=== PATIENT | female | born 1940 ===

== ENCOUNTER 2017-06-23 09:22 | Day surgery (SDC) | payer MEDICARE, OTHER ==
[2017-06-18 08:56] VITALS: BMI 32.3
[2017-06-23] MEDS ORDERED: Tropicamide 1% Opht 150 DROP/15 ML LEFTEYE ONE (09:45)
[2017-06-23] MEDS: Phenylephrine 2.5% Opht Soln OS ONE ×2 (09:45→11:34)
[2017-06-23] MEDS ORDERED: Flurbiprofen 0.3% Opht SOLN OU ONE (09:45)
[2017-06-23] MEDS ORDERED: Tropicamide 1% Opht 150 DROP/15 ML LEFTEYE SCH (10:15)
[2017-06-23] MEDS ORDERED: Flurbiprofen 0.3% Opht SOLN OS SCH (10:15)
[2017-06-23] MEDS ORDERED: PHENYLEPHRINE HCL 2.5% OS SCH (10:15)
[2017-06-23] MEDS ORDERED: Acetylcholine 1% Opth System Pack IO ONE (11:04)
[2017-06-23] MEDS ORDERED: Maxitrol Opht Susp ONE (11:04)
[2017-06-23] MEDS ORDERED: Lidocaine 1% 20 MG/2 ML PF AMP ONE (11:05)
[2017-06-23] MEDS ORDERED: CA CL/K CL/NA CL 500 ML IR ONE (11:05)
[2017-06-23] MEDS ORDERED: Tetracaine 0.5% Ophth 2 ML BOTTLE ONE (11:05)
[2017-06-23] MEDS ORDERED: BSS 15 ML 45 ML IR ONE (11:05)
[2017-06-23] MEDS ORDERED: Chondroitin/Hyaluronate Opth Syringe KIT (0.55 ml-0.5 ml) IO ONE (11:06)
[2017-06-23] MEDS ORDERED: Povidone Iodine 5% Opht SOLUTION ONE (11:06)
[2017-06-23] MEDS ORDERED: Midazolam 2 MG/2 ML VIAL ONE (11:11)
[2017-06-23] MEDS: EPINEPHrine 1 mg/ml (1:1000) Inj ONE ×2 (11:13→11:20)
[2017-06-23] MEDS ORDERED: Tetracaine 0.5% Ophth 2 ML BOTTLE OS ONE (11:15)
[2017-06-23] MEDS ORDERED: Lactated Ringer's 1,000 ML IV ONE (11:20)
[2017-06-23] MEDS ORDERED: Maxitrol Opht Susp OS ONE (11:34)
[2017-06-23 12:48] VITALS: RESP 18
--- NOTE | 2017-06-23 13:21 | PCM.RRTMUL ---
COMPUTING SERVICES DIRECTOR Nurse Assessment - Situation COMPUTING SERVICES DIRECTOR Responder Arrival Time:: 12:18 - Vital Signs Blood Pressure:: 192/91 Pulse Rate:: 59 Respiratory Rate:: 18 Temperature:: 98.2 F I.Reason for COMPUTING SERVICES DIRECTOR - A) Acute Change in Patient: Subjective: S: Pt is a 77 yo F s/p left cataract surgery, no history of hypertension, BP before surgery not elevated. COMPUTING SERVICES DIRECTOR called due to elevated BP. On arrival BP 206/89, HR 59, O2 sat 98. Patient did not appear to be in acute distress. O: On exam, lungs were clear to auscultation bilaterally, S1,S2, patient remained AAOx3 and not in distress. EKG was done, was unremarkable, and showed no changes from prior studies. Hydralazine 10mg IV push was given, BP came down to 179/77. HR was 58, O2 sat 98. A: This is a 77 yo F s/p left cataract surgery with no history of htn, who had elevated BP post surgery. Pt remained comfortable during COMPUTING SERVICES DIRECTOR and interventions, and BP came down to 179/77 with intervention hydralazine 10mg. P: Elevated blood pressure,acute, likely secondary to stress of surgical procedure -monitor vital signs, repeat BP in 30 min. Repeat BP in 30 min was 162/51, HR 71 , O2 sat 100. -f/u with PMD within 1 week
[2017-06-23 14:08] VITALS: O2SAT 100
[2017-06-23 14:09] VITALS: BP 131/65; PULSE 57; TEMP 97.8
--- NOTE | 2017-06-24 18:02 | CARD ---
APPROVED REPORT EKG Measurement Heart [id number] <Conclusion> Sinus bradycardia Nonspecific T wave abnormality Abnormal ECG
--- NOTE | 2017-06-29 11:13 | OP ---
SURGEON: FADY KEBEDE MD ANESTHESIOLOGIST: AILYN CLEARY MD ANESTHESIA: LOCAL / IV SEDATION PREOPERATIVE DIAGNOSIS: CATARACT LEFT EYE. POSTOPERATIVE DIAGNOSIS: CATARACT LEFT EYE. OPERATION: CLEAR CORNEAL PHACOEMULSIFICATION WITH LENS IMPLANT LEFT EYE. PREPARATION AND PROCEDURE: After the patient was prepped and draped in the usual manner for sterile ophthalmic surgery, local IV sedation was administered ; eye seals were applied to the upper and lower lid margins and an adult wire lid speculum was placed within the lids. Under microsurgical control, a two- step clear corneal incision was made into the anterior chamber. The initial incision was perpendicular to the corneal plane. The second incision with the keratome was placed at a 45-degree angle to the first incision. One cc of one percent Xylocaine MPF was instilled into the anterior chamber to achieve proper intraocular anesthesia. At this time, the Viscoelastic was injected into the anterior chamber for protection of the endothelium and for maintenance of the chamber depth. A 360-degree continuous curvilinear capsulorrhexis was performed using a pre-bent 25-gauge needle. Hydrodissection and hydrodelineation were performed using a Caldwell cannula and balanced salt solution. Utilizing the tip of the Caldwell cannula, the nucleus was rotated freely within the capsular bag. A standard one-handed phacoemulsification was utilized at this time for sculpting and rotating of the nucleus. The nucleus was fragmented in its entirety and aspirated without any consequence. A standard I&A was carried out for the residual cortical material. No residual material was noted within the capsular bag. The posterior capsule was noted to be clear. Additional Viscoelastic was injected into the capsular bag in preparation for lens implantation. After this has been satisfactorily achieved the intraocular lens injected through the corneal incision into the capsular bag. The intraocular lens was manipulated until it was properly oriented and the Viscoelastic was evacuated from the capsular bag and anterior chamber. The anterior chamber was reformed with balanced salt solution. The corneal incision was irrigated with BSS. The intraocular pressure was found to be within normal limits. This terminated the procedure. The speculum and lid drapes were removed. TobraDex ophthalmic suspension and Pilocarpine 1% drops one drop was applied to the eye. POSTOPERATIVE CONDITION: The patient was brought to the Postanesthesia Recovery area with stable vital signs. DFADY ORR MDD
== END 2017-06-23 14:25 | disposition home or self-care (01) ==
LOC: H.OPSURG 09:22
PROVIDERS: ATTEND Ophthalmology
DX: H26.9 Unspecified cataract (principal); R03.0 Elevated blood-pressure reading, without diagnosis of hypertension
CPT/HCPCS: 66984; 93005; J0171; J2250; J3010; J7120; V2632

== ENCOUNTER 2017-07-07 08:40 | Day surgery (SDC) | payer MEDICARE, OTHER ==
[2017-06-18 08:56] VITALS: BMI 32.3
[2017-07-07] MEDS ORDERED: Lidocaine 1% 20 MG/2 ML PF AMP ONE (08:43)
[2017-07-07] MEDS ORDERED: EPINEPHrine 1 mg/ml (1:1000) Inj ONE (08:43)
[2017-07-07] MEDS ORDERED: Tetracaine 0.5% Ophth 2 ML BOTTLE ONE (08:43)
[2017-07-07] MEDS ORDERED: Maxitrol Opht Susp ONE (08:43)
[2017-07-07] MEDS ORDERED: Acetylcholine 1% Opth System Pack IO ONE ×2 (08:43→12:20)
[2017-07-07] MEDS ORDERED: BSS 15 ML 45 ML IR ONE (08:44)
[2017-07-07] MEDS ORDERED: Chondroitin/Hyaluronate Opth Syringe KIT (0.55 ml-0.5 ml) IO ONE ×2 (08:44→12:16)
[2017-07-07] MEDS ORDERED: Povidone Iodine 5% Opht SOLUTION ONE (08:44)
[2017-07-07] MEDS ORDERED: CA CL/K CL/NA CL 500 ML IR ONE (08:44)
[2017-07-07] MEDS ORDERED: Pilocarpine 1% Opht Soln ONE (08:44)
[2017-07-07 09:24] VITALS: RESP 18
[2017-07-07] MEDS ORDERED: Flurbiprofen 0.3% Opht SOLN OU ONE (09:45)
[2017-07-07] MEDS ORDERED: PHENYLEPHRINE HCL 2.5% OD SCH (09:45)
[2017-07-07] MEDS ORDERED: Tropicamide 1% Opht 150 DROP/15 ML OD ONE (09:45)
[2017-07-07] MEDS ORDERED: Tropicamide 1% Opht 150 DROP/15 ML OD SCH (09:45)
[2017-07-07] MEDS ORDERED: Phenylephrine 2.5% Opht Soln OD ONE (09:45)
[2017-07-07] MEDS ORDERED: Flurbiprofen 0.3% Opht SOLN OD SCH (09:45)
[2017-07-07] MEDS ORDERED: Midazolam 2 MG/2 ML VIAL ONE (11:55)
[2017-07-07] MEDS ORDERED: Lactated Ringer's 1,000 ML IV ONE (12:00)
[2017-07-07] MEDS ORDERED: Tetracaine 0.5% Ophth 2 ML BOTTLE OD ONE (12:10)
[2017-07-07] MEDS ORDERED: BSS 15 ML SOL IR ONE (12:20)
[2017-07-07] MEDS ORDERED: Pilocarpine 1% Opht Soln OD ONE (12:22)
[2017-07-07] MEDS ORDERED: Maxitrol Opht Susp OD ONE (12:24)
[2017-07-07 13:59] VITALS: O2SAT 99
[2017-07-07 14:02] VITALS: BP 136/74; PULSE 63; TEMP 97.6
--- NOTE | 2017-07-08 09:39 | OP ---
DATE OF PROCEDURE: 07/07/17 SURGEON: FADY KEBEDE MD ANESTHESIOLOGIST: AURELIO GALVEZ MD, LOUIS A MD ANESTHESIA: LOCAL / IV SEDATION PREOPERATIVE DIAGNOSIS: CATARACT RIGHT EYE. POSTOPERATIVE DIAGNOSIS: CATARACT RIGHT EYE. OPERATION: CLEAR CORNEAL PHACOEMULSIFICATION WITH LENS IMPLANT RIGHT EYE. PREPARATION AND PROCEDURE: After the patient was prepped and draped in the usual manner for sterile ophthalmic surgery, local IV sedation was administered ; eye seals were applied to the upper and lower lid margins and an adult wire lid speculum was placed within the lids. Under microsurgical control, a two- step clear corneal incision was made into the anterior chamber. The initial incision was perpendicular to the corneal plane. The second incision with the keratome was placed at a 45-degree angle to the first incision. One cc of one percent Xylocaine MPF was instilled into the anterior chamber to achieve proper intraocular anesthesia. At this time, the Viscoelastic was injected into the anterior chamber for protection of the endothelium and for maintenance of the chamber depth. A 360-degree continuous curvilinear capsulorrhexis was performed using a pre-bent 25-gauge needle. Hydrodissection and hydrodelineation were performed using a Caldwell cannula and balanced salt solution. Utilizing the tip of the Caldwell cannula, the nucleus was rotated freely within the capsular bag. A standard one-handed phacoemulsification was utilized at this time for sculpting and rotating of the nucleus. The nucleus was fragmented in its entirety and aspirated without any consequence. A standard I&A was carried out for the residual cortical material. No residual material was noted within the capsular bag.The posterior capsule was noted to be clear. Additional Viscoelastic was injected into the capsular bag in preparation for lens implantation. After this has been satisfactorily achieved the intraocular lens injected through the corneal incision into the capsular bag. The intraocular lens was manipulated until it was properly oriented and the Viscoelastic was evacuated from the capsular bag and anterior chamber. The anterior chamber was reformed with balanced salt solution. The corneal incision was irrigated with BSS. The intraocular pressure was found to be within normal limits. This terminated the procedure. The speculum and lid drapes were removed. TobraDex ophthalmic suspension and Pilocarpine 1% drops one drop was applied to the eye. POSTOPERATIVE CONDITION: The patient was brought to the Postanesthesia Recovery area with stable vital signs. DFADY ORR MD
== END 2017-07-07 14:10 | disposition home or self-care (01) ==
LOC: H.OPSURG 08:40
PROVIDERS: ATTEND Ophthalmology
DX: H25.11 Age-related nuclear cataract, right eye (principal); I10 Essential (primary) hypertension
CPT/HCPCS: 66984; J0171; J2250; J7120; V2632

== ENCOUNTER 2017-12-16 14:33 | Inpatient (IN) | payer MEDICARE, OTHER ==
[2017-12-16 14:34] VITALS: BMI 32.3
--- NOTE | 2017-12-16 15:22 | ED PDOC ---
Lower Extremity Pain/Injury Time Seen by Provider: 12/16/17 14:46 Chief Complaint (Nursing): Lower Extremity Problem/Injury Chief Complaint (Provider): Left leg swelling History Per: Patient, Family History/Exam Limitations: no limitations Onset/Duration Of Symptoms: Days (x3+ months) Current Symptoms Are (Timing): Still Present Additional Complaint(s): Betty Shields is a 77 year old female, with a past medical history of hypertension, who was sent from the [facility] complaining of left leg swelling associated with mild pain and difficulty moving onset for x3 months. Patient reports she has been following up with her doctor once a month for the leg swelling. However, she noticed the swelling worsened today which prompted her visit to the doctor. Patient denies any chest pain, shortness of breath, weakness, nausea, vomit or diarrhea. No further medical complaints. No numbness, tingles. PMD: None provided. Past Medical History Reviewed: Historical Data, Nursing Documentation, Vital Signs Vital Signs: Last Vital Signs Temp 98.0 F 12/16/17 14:36 Pulse 60 12/16/17 14:36 Resp 16 12/16/17 14:36 BP 191/81 H 12/16/17 14:36 Pulse Ox 98 12/16/17 14:36 - Medical History PMH: HTN (WITH EPISODE OF ELEVATED BLOOD PRESSURE-FROM LAST ADMISSION) Denies: Atrial Fibrillation (not in the past), Cardia Arrhythmia, CHF, Chronic Kidney Disease - Surgical History Other surgeries: B/l varicose vein surgery - Family History Family History: States: Unknown Family Hx - Living Arrangements Living Arrangements: With Family - Home Medications Home Medications: Ambulatory Orders Medication Instructions Recorded Calcium Citrate/Vitamin D2 1 each PO .WEEKLY 06/23/17 [Geovanny-Citrate Plus Vitamin D Tab] Cholecalciferol [Vitamin D] 1,000 unit PO .WEEKLY 07/07/17 - Allergies Allergies/Adverse Reactions: Allergies Allergy/AdvReac Type Severity Reaction Status Date / Time banana Allergy VOMITING Verified 06/18/17 08:55 seafood AdvReac VOMITING Uncoded 06/18/17 08:55 Review of Systems ROS Statement: Except As Marked, All Systems Reviewed And Found Negative Cardiovascular: Negative for: Chest Pain Respiratory: Negative for: Shortness of Breath Gastrointestinal: Negative for: Nausea, Vomiting, Diarrhea Musculoskeletal: Positive for: Leg Pain (left leg swelling w/ some pain) Neurological: Negative for: Weakness, Numbness Physical Exam - Reviewed Nursing Documentation Reviewed: Yes Vital Signs Reviewed: Yes - Physical Exam Appears: Positive for: Non-toxic, No Acute Distress Head Exam: Positive for: ATRAUMATIC, NORMAL INSPECTION, NORMOCEPHALIC Skin: Positive for: Normal Color, Warm, Dry Eye Exam: Positive for: Normal appearance Neck: Positive for: Painless ROM, Supple Cardiovascular/Chest: Positive for: Regular Rate, Rhythm. Negative for: Murmur Respiratory: Positive for: Normal Breath Sounds. Negative for: Respiratory Distress Gastrointestinal/Abdominal: Positive for: Normal Exam, Soft. Negative for: Tenderness, Guarding, Rebound Back: Positive for: Normal Inspection. Negative for: L CVA Tenderness, R CVA Tenderness, Vertebral Tenderness Extremity: Positive for: Normal ROM (lower extremities.), Tenderness (left leg mild. ), Pedal Edema (trance lower 1/3 tibia L), Swelling (L lower 1/3 of tibia and ankle area; no erythema, induration, fluctuance; no calf tenderness.), Other (DP pulse 2+. No discoloration or erythema.). Negative for: Calf Tenderness, Deformity Neurologic/Psych: Positive for: Alert, Oriented - ECG O2 Sat by Pulse Oximetry: 98 (RA) Pulse Ox Interpretation: Normal - CT Scan/US US Other Rad Studies (CT/US): Read By Radiologist Other Rad Interpretation: no dvt - Progress ED Course And Treament: 1658: Stable. AAOx3. Tolerated PO. Decreased pain. Did not take any pain meds in ER. Ambulating at baseline. Fu with pcp. Medical Decision Making Medical Decision Making: Initial Impression: Initial Plan: --Duplex lower extrem vein left [US] --reevaluation Scribe Attestation: Documented by Stevenson Sher, acting as a scribe for Yaya Soliz MD. Provider Scribe Attestation: All medical record entries made by the Scribe were at my direction and personally dictated by me. I have reviewed the chart and agree that the record accurately reflects my personal performance of the history, physical exam, medical decision making, and the department course for this patient. I have also personally directed, reviewed, and agree with the discharge instructions and disposition. Disposition - Clinical Impression Clinical Impression: Leg edema - Patient ED Disposition Is Patient to be Admitted: No Counseled Patient/Family Regarding: Studies Performed, Diagnosis - Disposition Referrals: [facility] [Outside] - 12/17/17 Disposition: Routine/Home Disposition Time: 17:00 Condition: STABLE Additional Instructions: Return if not better in 3 days. Instructions: Leg Edema (ED) Print Language: YEMENI
--- NOTE | 2017-12-16 16:51 | US ---
HISTORY: pain . PRIORS: None. FINDINGS: 2-D, color and duplex Doppler analysis of the lower extremity venous circulation using routine protocol from the femoral veins through the popliteal veins. Venous compressibility: Normal. Flow and augmentation patterns: Normal. Visualized veins upper third of calf: Normal. Nolan cyst: None. IMPRESSION: No sonographic or Doppler evidence for DVT in left lower extremity.
[2017-12-16] MEDS ORDERED: Sodium Chloride 0.9% 500 ML IV STA (17:27)
[2017-12-16 17:55] LABS: BASO # 0.1 K/uL (0.0-0.2); BASO % 1.3 % (0.0-2.0); EOS # 0.2 K/uL (0.0-0.7); EOS % 3.3 % (0.0-4.0); HEMOGLOBIN 12.7 g/dL (12.0-16.0); LYMPH # 1.7 K/uL (1.0-4.3); LYMPH % 28.7 % (20.0-40.0); MEAN CELL VOLUME 93.7 fl (81.0-99.0); MEAN CORPUSCULAR HEMOGLOBIN 30.3 pg (27.0-31.0); MEAN CORPUSCULAR HGB CONC 32.3 g/dL (33.0-37.0); MEAN PLATELET VOLUME 10.4 fl (7.2-11.7); MONO # 0.9 K/uL (0.0-0.8); MONO % 14.7 % (0.0-10.0); NRBC % 0.2 % (0.0-0.0); RBC 4.2 Mil/uL (3.80-5.20); RED CELL DISTRIBUTION WIDTH 14.1 % (11.5-14.5); WHITE BLOOD COUNT 5.9 K/uL (4.8-10.8)
[2017-12-16 18:05] LABS: ALB/GLOB RATIO 1.1 (1.0-2.1); ALBUMIN 4.4 g/dL (3.5-5.0); ALT/SGPT 29 U/L (9-52); AST/SGOT 27 U/L (14-36); BLOOD UREA NITROGEN 16 mg/dl (7-17); CALCIUM 9.9 mg/dL (8.4-10.2); GFR AFRICAN-AMERICAN 58; GFR NON-AFRICAN AMERICAN 48
[2017-12-16 18:07] LABS: PARTIAL THROMBOPLASTIN TIME 32.5 Seconds (25.6-37.1); PROTHROMBIN TIME 11.1 Seconds (9.8-13.1)
[2017-12-16 18:14] LABS: B-TYPE NATRIURETIC PEPTIDE 267 pg/ml (0-900)
--- NOTE | 2017-12-16 18:34 | RAD ---
HISTORY: dyspnea COMPARISON: 06/18/2017 FINDINGS: LUNGS: No active pulmonary disease. PLEURA: No significant pleural effusion identified, no pneumothorax apparent. CARDIOVASCULAR: Normal. OSSEOUS STRUCTURES: No significant abnormalities. VISUALIZED UPPER ABDOMEN: Normal. OTHER FINDINGS: None. IMPRESSION: No active disease.
[2017-12-16] MEDS ORDERED: diltiaZEM 100 mg Vial ( ADD-VANTAGE ) IV ONE (18:42)
--- NOTE | 2017-12-16 20:02 | CP.PCM.HP ---
History of Present Illness - History of Present Illness History of Present Illness: PMD [facility](Dr Pham) Hx taken from patient and previous records Full Code 77 year old female, with a past medical history of HTN, was sent from the [facility] by PCP complaining of left leg swelling associated with mild pain and difficulty moving for x3 months. Patient reports she has been following up with her doctor often for the leg swelling. However, she noticed the swelling worsened today which prompted her visit to the doctor. Patient had a LE US that showed no DVT. While at ED patient suddenly developed CP and palpitations. EKG showed A.Fib with RPR and ST abnormality. Patient was treated, HR improved and CP/Palpitations resolved. She was decided to be admitted to hosp for further eval and treatment. Upon evaluating patient at ED by us, she was speaking in full sentences, oriented and no acute distress. CP and palpitations resolved. Patient on Cardizem drip. Denies headaches, vision changes, SOB, abd pain, nausea, vomiting , urinary symptoms. C/O chronic LE B/L pain worse on L/leg and difficulty walking due to swelling on the leg. Denies Hx of similar episodes in the past. Symptoms started suddenly. Patient denies taking any new medications recently. ED course: VS at the time of symptoms: HR 150, BP 165/110, O2sat 98. EKG: A.fib with RVR, ST abnormality(Pending report) LE US: No DVT CBC/CMP/Coags: Unremarkable other than GFR =48 CXR: No active disease Meds: Cardizem bolus 10 mg and then 5 mg IV Cardizem drip at 5 Aspirin 325 mg PO once IV NS 500 ml at 100mls PMHx: LE edema. Varicous veins SHx: Denies x3 FHx: Non contributory Present on Admission - Present on Admission Any Indicators Present on Admission: No Review of Systems - Review of Systems All systems: reviewed and no additional remarkable complaints except - Cardiovascular Cardiovascular: Chest Pain, Leg Edema, Palpitations Past Patient History - Infectious Disease Hx of Infectious Diseases: None - Tetanus Immunizations Tetanus Immunization: Unknown - Past Medical History & Family History Past Medical History?: Yes - Past Social History Smoking Status: Never Smoked - CARDIAC Hx Atrial Fibrillation: No (not in the past) Hx Cardia Arrhythmia: No Hx Congestive Heart Failure: No Hx Hypertension: Yes (WITH EPISODE OF ELEVATED BLOOD PRESSURE-FROM LAST ADMISSION) - PULMONARY Hx Respiratory Disorders: No - NEUROLOGICAL Hx Neurological Disorder: No - HEENT Hx HEENT Problems: No - RENAL Hx Chronic Kidney Disease: No - ENDOCRINE/METABOLIC Hx Endocrine Disorders: No - HEMATOLOGICAL/ONCOLOGICAL Hx Blood Disorders: No - INTEGUMENTARY Hx Dermatological Problems: No - MUSCULOSKELETAL/RHEUMATOLOGICAL Hx Musculoskeletal Disorders: No - GASTROINTESTINAL Hx Gastrointestinal Disorders: No - GENITOURINARY/GYNECOLOGICAL Hx Genitourinary Disorders: No - PSYCHIATRIC Hx Emotional Abuse: No Hx Physical Abuse: No Hx Substance Use: No - SURGICAL HISTORY Hx Surgeries: Yes Hx Cataract Extraction: Yes (LEFT EYE) Other/Comment: BILATERAL VARICOSE VEIN; DIOR ON LEFT SIDE OF FACE - ANESTHESIA Hx Anesthesia: Yes Hx Anesthesia Reactions: No Hx Malignant Hyperthermia: No Meds Allergies/Adverse Reactions: Allergies Allergy/AdvReac Type Severity Reaction Status Date / Time banana Allergy VOMITING Verified 06/18/17 08:55 seafood AdvReac VOMITING Uncoded 06/18/17 08:55 Physical Exam - Constitutional Appears: Non-toxic, No Acute Distress - Head Exam Head Exam: NORMAL INSPECTION - Eye Exam Eye Exam: EOMI, PERRL - ENT Exam ENT Exam: Mucous Membranes Moist - Respiratory Exam Respiratory Exam: Clear to Auscultation Bilateral, NORMAL BREATHING PATTERN. absent: Rales, Wheezes - Cardiovascular Exam Cardiovascular Exam: Tachycardia, REGULAR RHYTHM, +S1, +S2. absent: Gallop, Systolic Murmur - GI/Abdominal Exam GI & Abdominal Exam: Normal Bowel Sounds, Soft. absent: Guarding, Rebound - Extremities Exam Extremities exam: Positive for: normal capillary refill, pedal edema (B/L), pedal pulses present. Negative for: calf tenderness - Back Exam Back exam: absent: CVA tenderness (L), CVA tenderness (R) - Neurological Exam Neurological exam: Alert, CN II-XII Intact, Oriented x3 Additional comments: No motorsensory impairment at the time of PE - Psychiatric Exam Psychiatric exam: Normal Affect, Normal Mood - Skin Skin Exam: Normal Color, Warm Results - Vital Signs Recent Vital Signs: Last Vital Signs Temp 98.0 F 12/16/17 14:36 Pulse 116 H 12/16/17 19:55 Resp 18 12/16/17 19:55 BP 171/120 H 12/16/17 19:55 Pulse Ox 99 12/16/17 19:55 - Labs Result Diagrams: 12/16/17 17:50 12/16/17 17:50 Labs: Laboratory Results - last 24 hr 12/16/17 12/16/17 12/16/17 17:50 17:50 17:50 WBC 5.9 RBC 4.20 Hgb 12.7 Hct 39.4 MCV 93.7 MCH 30.3 MCHC 32.3 L RDW 14.1 Plt Count 198 MPV 10.4 Neut % (Auto) 52.0 Lymph % (Auto) 28.7 [place] % (Auto) 14.7 H Eos % (Auto) 3.3 Baso % (Auto) 1.3 Neut # 3.0 Lymph # 1.7 [place] # 0.9 H Eos # 0.2 Baso # 0.1 PT 11.1 INR 1.0 APTT 32.5 Sodium 142 Potassium 4.1 Chloride 106 Carbon Dioxide 26 Anion Gap 14 BUN 16 Creatinine 1.1 Est GFR ( Amer) 58 Est GFR (Non-Af Amer) 48 Random Glucose 102 Calcium 9.9 Total Bilirubin 0.4 AST 27 ALT 29 Alkaline Phosphatase 122 Troponin I < 0.0120 NT-Pro-B Natriuret Pep 267 Total Protein 8.3 H Albumin 4.4 Globulin 4.0 H Albumin/Globulin Ratio 1.1 Assessment & Plan - Assessment and Plan (Free Text) Assessment: 77 y/o F with PMHx of chronic LE edema admitted to hosp for sudden onset A.fib and CP A.Fib with RVR -Acute -Improved, stable, asymptomatic at the time of my exam -S/P Diltizem 15 mg IV bolus(total) -On diltiazem drip at 5 and titrate as needed as per protocol -Cardio consul: Dr Kingsley. Spoke with Dr Kingsley. Will see patient in the morning. Advised to Start Metoprolol PO if still tachy with normal BP. Decided to hold Metoprolol for now since last BP = 134/76 on cardizem drip -CHADS-VASc = 4(Candidate for anticoag). Will wait for cardio recs since first episode of A.fib -F/U repeat EKG AM -Echocardiogram ordered -Admit to telemetry -Monitor Chest pain -acute -resolved -EKG shows nonspecific ST elevation: Pending report -Troponin x1 WNL -Cardio consulted: As per Dr Kingsley, ST changes could be due to tachycardia. Will see patient AM -S/P ASA 325 mg PO -NItroglycerin 0.4 SL pRN for CP -F/U repeat EKG AM -Troponin Q8h x2 Chronic Lower ext edema -Likely venous insufficiency -Hx of varicous vein Sx -No DVT on LE US -GFR 48. BUN/Creat WNL -F/U Echo, ProBnp Prophylactic measures -Lovenox 30 mg SQ daily -SCDs PRN
--- NOTE | 2017-12-17 01:05 | CP.PCM.PCO ---
Addendum Addendum: Revaluated patient after HR lowered to 50s maintained. Cardizem drip held after repeat EKG showed sinus badry/sinus arrhythmia, P waves present and persistent HR 50s with the drip running at 5. Patient stable, asymptomatic. Will continue monitor and readjust treatment as needed during the night. 12/16/17 23:15
[2017-12-17 06:38] LABS: BASO # 0.1 K/uL (0.0-0.2); BASO % 1.4 % (0.0-2.0); EOS # 0.3 K/uL (0.0-0.7); EOS % 7.2 % (0.0-4.0); HEMOGLOBIN 11.4 g/dL (12.0-16.0); LYMPH # 1.1 K/uL (1.0-4.3); LYMPH % 24.2 % (20.0-40.0); MEAN CELL VOLUME 92.2 fl (81.0-99.0); MEAN CORPUSCULAR HEMOGLOBIN 31.3 pg (27.0-31.0); MEAN CORPUSCULAR HGB CONC 33.9 g/dL (33.0-37.0); MEAN PLATELET VOLUME 10.4 fl (7.2-11.7); MONO # 0.7 K/uL (0.0-0.8); MONO % 14.1 % (0.0-10.0); NEUT # 2.5 K/uL (1.8-7.0); NEUT % 53.1 % (50.0-75.0); NRBC % 0.1 % (0.0-0.0); RBC 3.66 Mil/uL (3.80-5.20); RED CELL DISTRIBUTION WIDTH 13.8 % (11.5-14.5); WHITE BLOOD COUNT 4.7 K/uL (4.8-10.8)
[2017-12-17 06:46] LABS: ALBUMIN 3.4 g/dL (3.5-5.0); CALCIUM 9.4 mg/dL (8.4-10.2)
[2017-12-17] MEDS ORDERED: Enoxaparin 30 mg Syringe SC SCH (09:00)
--- NOTE | 2017-12-17 10:04 | CP.PCM.CON ---
History of Present Illness - History of Present Illness History of Present Illness: this 77-year-old lady was sent to the hospital for a venous ultrasound of lower extremities because of recurring pedal edema complained of palpitations and was promptly sent to the emergency room where she was found to have atrial fibrillation and hospitalized. The patient also reported a vague sense of chest discomfort during palpitations. With intravenous Cardizem the patient has reverted back to sinus rhythm. She gives history of having been diagnosed with hypertension one month back and was started on anti-hypertensive a month back. She has never been found to have diabetes and quit smoking 15 years back. Still approximately one year back she was quite active and could walk 8-10 blocks without any difficulty now with recurring knee pains she can barely walk couple of blocks. She denies any chest pains connected to physical exertion and denies any shortness of breath or orthopnea. She denies prior palpitations or syncope or near syncope. She denies any family history of vascular disease. the patient was seen with her 2 sons in attendance. Physical examination shows an elderly lady lying comfortably in bed, alert awake and coherent afebrile. Able to lie virtually flat in bed and breathes comfortably at 16-18 breaths per minute. Has a heart rate of 64 bpm regular with rare isolated premature atrial beats. Her jugular venous pressure was not elevated and there was no edema or lower extremity. The pedal pulses were well felt. Her blood pressure was 140/70 mmHg. Her extremities were warm and her nailbeds were pink. Her apex was not palpable. The first and second heart sounds were normal. There was no murmur and no gallop and no rales. Her abdomen was soft liver and spleen are not palpable. Her electrocardiogram taken at 11: 20 PM shows sinus rhythm with rare isolated premature ventricular beats and flat ST T waves in 1 and inverted T waves in aVL. Her electrocardiogram earlier in the day at taken at 5:37 PM shows atrial fibrillation at fast heart rates and ST-T changes secondary to tachycardia. No Q waves were detected on either electro-cardiogram. Her lab data shows normal hemoglobin and hematocrit with a platelet count of 192 ,000. Her BUN and creatinine were 17 and 1.3 mg percent her electrolytes were essentially normal. Her troponin levels were negative for any evidence of myocyte injury and a pro BNP was within normal limits. I have requested a TSH level to rule out hyperthyroidism. Impression: transient atrial fibrillation in a patient with recent diagnosis of hypertension. With a [id number] Vasc score exceeding 2 the patient should have chronic oral anticoagulation. An echocardiogram is awaited to evaluate for any possible structural heart disease. I have reassured the patient's family regarding the nature of this arrhythmia. Past Patient History - Infectious Disease Hx of Infectious Diseases: None - Tetanus Immunizations Tetanus Immunization: Unknown - Past Medical History & Family History Past Medical History?: Yes - Past Social History Smoking Status: Never Smoked - CARDIAC Hx Atrial Fibrillation: No (not in the past) Hx Cardia Arrhythmia: No Hx Congestive Heart Failure: No Hx Hypertension: Yes (WITH EPISODE OF ELEVATED BLOOD PRESSURE-FROM LAST ADMISSION) - PULMONARY Hx Respiratory Disorders: No - NEUROLOGICAL Hx Neurological Disorder: No - HEENT Hx HEENT Problems: No - RENAL Hx Chronic Kidney Disease: No - ENDOCRINE/METABOLIC Hx Endocrine Disorders: No - HEMATOLOGICAL/ONCOLOGICAL Hx Blood Disorders: No - INTEGUMENTARY Hx Dermatological Problems: No - MUSCULOSKELETAL/RHEUMATOLOGICAL Hx Musculoskeletal Disorders: No - GASTROINTESTINAL Hx Gastrointestinal Disorders: No - GENITOURINARY/GYNECOLOGICAL Hx Genitourinary Disorders: No - PSYCHIATRIC Hx Emotional Abuse: No Hx Physical Abuse: No Hx Substance Use: No - SURGICAL HISTORY Hx Surgeries: Yes Hx Cataract Extraction: Yes (LEFT EYE) Other/Comment: BILATERAL VARICOSE VEIN; DIOR ON LEFT SIDE OF FACE - ANESTHESIA Hx Anesthesia: Yes Hx Anesthesia Reactions: No Hx Malignant Hyperthermia: No Meds Allergies/Adverse Reactions: Allergies Allergy/AdvReac Type Severity Reaction Status Date / Time banana Allergy VOMITING Verified 06/18/17 08:55 seafood AdvReac VOMITING Uncoded 06/18/17 08:55 - Medications Medications: Current Medications Acetaminophen (Tylenol 325mg Tab) 650 mg PO Q6 PRN PRN Reason: Pain, moderate (4-7) Last Admin: 12/17/17 09:33 Dose: 650 mg Apixaban (Eliquis) 5 mg PO DAILY [facility] PRN Reason: Protocol Enoxaparin Sodium (Lovenox) 30 mg SC DAILY [facility] PRN Reason: Protocol Last Admin: 12/17/17 09:26 Dose: 30 mg Losartan Potassium (Cozaar) 25 mg PO DAILY [facility] Last Admin: 12/17/17 09:25 Dose: Not Given Nitroglycerin (Nitrostat Sl Tab) 0.4 mg SL Q5M PRN PRN Reason: Chest pain Results - Vital Signs Recent Vital Signs: Last Vital Signs Temp 97.9 F 12/17/17 08:00 Pulse 47 L 12/17/17 09:25 Resp 18 12/17/17 08:00 BP 124/67 12/17/17 08:00 Pulse Ox 94 L 12/17/17 08:00 - Labs Result Diagrams: 12/17/17 05:00 12/17/17 05:00 Labs: Laboratory Results - last 24 hr 12/16/17 12/16/17 12/16/17 17:50 17:50 17:50 WBC 5.9 RBC 4.20 Hgb 12.7 Hct 39.4 MCV 93.7 MCH 30.3 MCHC 32.3 L RDW 14.1 Plt Count 198 MPV 10.4 Neut % (Auto) 52.0 Lymph % (Auto) 28.7 [place] % (Auto) 14.7 H Eos % (Auto) 3.3 Baso % (Auto) 1.3 Neut # 3.0 Lymph # 1.7 [place] # 0.9 H Eos # 0.2 Baso # 0.1 PT 11.1 INR 1.0 APTT 32.5 Sodium 142 Potassium 4.1 Chloride 106 Carbon Dioxide 26 Anion Gap 14 BUN 16 Creatinine 1.1 Est GFR ( Amer) 58 Est GFR (Non-Af Amer) 48 Random Glucose 102 Calcium 9.9 Total Bilirubin 0.4 AST 27 ALT 29 Alkaline Phosphatase 122 Troponin I < 0.0120 NT-Pro-B Natriuret Pep 267 Total Protein 8.3 H Albumin 4.4 Globulin 4.0 H Albumin/Globulin Ratio 1.1 12/17/17 12/17/17 12/17/17 00:20 05:00 05:00 WBC 4.7 L RBC 3.66 L Hgb 11.4 L Hct 33.7 L MCV 92.2 MCH 31.3 H MCHC 33.9 RDW 13.8 Plt Count 192 MPV 10.4 Neut % (Auto) 53.1 Lymph % (Auto) 24.2 [place] % (Auto) 14.1 H Eos % (Auto) 7.2 H Baso % (Auto) 1.4 Neut # 2.5 Lymph # 1.1 [place] # 0.7 Eos # 0.3 Baso # 0.1 PT INR APTT Sodium 145 Potassium 4.0 Chloride 108 H Carbon Dioxide 26 Anion Gap 15 BUN 17 Creatinine 1.3 H Est GFR ( Amer) 48 Est GFR (Non-Af Amer) 40 Random Glucose 94 Calcium 9.4 Total Bilirubin 0.5 AST 19 ALT 24 Alkaline Phosphatase 96 Troponin I 0.0390 NT-Pro-B Natriuret Pep 731 Total Protein 6.7 Albumin 3.4 L D Globulin 3.3 Albumin/Globulin Ratio 1.0 12/17/17 08:30 WBC RBC Hgb Hct MCV MCH MCHC RDW Plt Count MPV Neut % (Auto) Lymph % (Auto) [place] % (Auto) Eos % (Auto) Baso % (Auto) Neut # Lymph # [place] # Eos # Baso # PT INR APTT Sodium Potassium Chloride Carbon Dioxide Anion Gap BUN Creatinine Est GFR ( Amer) Est GFR (Non-Af Amer) Random Glucose Calcium Total Bilirubin AST ALT Alkaline Phosphatase Troponin I 0.0410 NT-Pro-B Natriuret Pep Total Protein Albumin Globulin Albumin/Globulin Ratio
--- NOTE | 2017-12-17 10:38 | CP.PCM.PN ---
Subjective - Date & Time of Evaluation Date of Evaluation: 12/17/17 Time of Evaluation: 07:05 - Subjective Subjective: Patient seen and examined bedside reports headache occipital overnight and over left lateral neck going to left shoulder overnight that has resolved in the morning. she denies in the morning chest pain, SOB, palpitation, n,v,abd pain. Objective - Vital Signs/Intake and Output Vital Signs (last 24 hours): Temp Pulse Resp BP Pulse Ox 97.9 F 47 L 18 124/67 94 L 12/17/17 08:00 12/17/17 09:25 12/17/17 08:00 12/17/17 08:00 12/17/17 08:00 - Medications Medications: Current Medications Acetaminophen (Tylenol 325mg Tab) 650 mg PO Q6 PRN PRN Reason: Pain, moderate (4-7) Last Admin: 12/17/17 09:33 Dose: 650 mg Apixaban (Eliquis) 5 mg PO DAILY [facility] PRN Reason: Protocol Losartan Potassium (Cozaar) 25 mg PO DAILY [facility] Last Admin: 12/17/17 09:25 Dose: Not Given Nitroglycerin (Nitrostat Sl Tab) 0.4 mg SL Q5M PRN PRN Reason: Chest pain - Labs Labs: 12/17/17 05:00 12/17/17 05:00 PT 11.1 Seconds (9.8-13.1) 12/16/17 17:50 INR 1.0 (0.9-1.2) 12/16/17 17:50 APTT 32.5 Seconds (25.6-37.1) 12/16/17 17:50 - Constitutional Appears: Non-toxic, No Acute Distress - Head Exam Head Exam: ATRAUMATIC, NORMOCEPHALIC - Eye Exam Eye Exam: Normal appearance - ENT Exam ENT Exam: Mucous Membranes Moist - Neck Exam Neck Exam: Full ROM, Normal Inspection, Tenderness Additional comments: Td over left supraclavicular area (trapezium muscle ) - Respiratory Exam Respiratory Exam: Clear to Ausculation Bilateral. absent: Rales, Rhonchi, Wheezes - Cardiovascular Exam Cardiovascular Exam: REGULAR RHYTHM, +S1, +S2 - GI/Abdominal Exam GI & Abdominal Exam: Soft, Normal Bowel Sounds - Extremities Exam Extremities Exam: Normal Capillary Refill - Neurological Exam Neurological Exam: Alert, Awake, Oriented x3 - Psychiatric Exam Psychiatric exam: Normal Mood - Skin Skin Exam: Intact Assessment and Plan - Assessment and Plan (Free Text) Plan: 77 y/o, f, PMhx/o HTN, chronic LE edema admitted to hosp for sudden onset A.fib and Chest pain 1) A.Fib with RVR -Acute, new onset in ED -S/P Diltizem 15 mg IV bolus(total) -s/p diltiazem drip. stopped. Sinus rhytm overnight -Payroll Services Analyst consult appreciated Dr Kingsley: Started in Eliquis 5 mg daily -CHADS-VASc = 4(Candidate for anticoag). -EKG this morning: sinus josh w/PAC -Echo:pending reading -Telemetry. 2) Chest pain -resolved -EKG shows nonspecific ST elevation: Pending report -Troponin 1 neg, next 2 trending up. Repeat other troponin 4 pm .f/u -Cardio consulted appreciated:as per Dr Kingsley, ST changes could be due to tachycardia. Will see patient AM -S/P ASA 325 mg PO -NItroglycerin 0.4 SL pRN for CP -EKG AM no acute changes 3) Left leg pain -resolved -Likely venous insufficiency vs CKD -Hx of varicous vein Sx -asymptomatic today. no pedal edema -Us lower ext: no DVT -ProBnp normal 731 4) CKD III G3 -GFR: 48 Bun/Cr nl 5) HTN Losartan 25 mg daily 6) DVT prophylaxis - SCD . on Eliquis 5 mg po daily
[2017-12-18 06:29] LABS: MEAN CELL VOLUME 93.1 fl (81.0-99.0); MEAN CORPUSCULAR HEMOGLOBIN 31.1 pg (27.0-31.0); MEAN CORPUSCULAR HGB CONC 33.4 g/dL (33.0-37.0); RBC 3.88 Mil/uL (3.80-5.20); RED CELL DISTRIBUTION WIDTH 13.7 % (11.5-14.5); WHITE BLOOD COUNT 4.9 K/uL (4.8-10.8)
[2017-12-18 06:43] LABS: CALCIUM 9.4 mg/dL (8.4-10.2)
--- NOTE | 2017-12-18 08:30 | CP.PCM.PN ---
Subjective - Date & Time of Evaluation Date of Evaluation: 12/18/17 Time of Evaluation: 08:20 - Subjective Subjective: Clinically stable, symptom free Steady sinus rhythm in physiologic rates BP well controlled Eco shows preserved LV syst function No significant valvulopathy May go home on present Rx including oral anticoagulant Discussed with the residents Objective - Vital Signs/Intake and Output Vital Signs (last 24 hours): Temp Pulse Resp BP Pulse Ox 98.5 F 50 L 18 132/69 95 12/18/17 06:03 12/18/17 06:03 12/18/17 06:03 12/18/17 06:03 12/18/17 06:03 - Medications Medications: Current Medications Acetaminophen (Tylenol 325mg Tab) 650 mg PO Q6 PRN PRN Reason: Pain, moderate (4-7) Last Admin: 12/17/17 09:33 Dose: 650 mg Apixaban (Eliquis) 2.5 mg PO BID [facility] PRN Reason: Protocol Losartan Potassium (Cozaar) 25 mg PO DAILY [facility] Last Admin: 12/17/17 09:25 Dose: Not Given Nitroglycerin (Nitrostat Sl Tab) 0.4 mg SL Q5M PRN PRN Reason: Chest pain - Labs Labs: 12/18/17 05:17 12/18/17 05:17 PT 11.1 Seconds (9.8-13.1) 12/16/17 17:50 INR 1.0 (0.9-1.2) 12/16/17 17:50 APTT 32.5 Seconds (25.6-37.1) 12/16/17 17:50
--- NOTE | 2017-12-18 09:59 | CP.PCM.DIS ---
Provider - Provider Date of Admission: 12/16/17 18:29 Attending physician: Shraddha Lan MD Time Spent in preparation of Discharge (in minutes): 30 Hospital Course - Lab Results Lab Results: Most Recent Lab Values WBC 4.9 K/uL (4.8-10.8) 12/18/17 05:17 RBC 3.88 Mil/uL (3.80-5.20) 12/18/17 05:17 Hgb 12.0 g/dL (12.0-16.0) 12/18/17 05:17 Hct 36.1 % (34.0-47.0) 12/18/17 05:17 MCV 93.1 fl (81.0-99.0) 12/18/17 05:17 MCH 31.1 pg (27.0-31.0) H 12/18/17 05:17 MCHC 33.4 g/dL (33.0-37.0) 12/18/17 05:17 RDW 13.7 % (11.5-14.5) 12/18/17 05:17 Plt Count 184 K/uL (130-400) 12/18/17 05:17 MPV 10.4 fl (7.2-11.7) 12/17/17 05:00 Neut % (Auto) 53.1 % (50.0-75.0) 12/17/17 05:00 Lymph % (Auto) 24.2 % (20.0-40.0) 12/17/17 05:00 Major % (Auto) 14.1 % (0.0-10.0) H 12/17/17 05:00 Eos % (Auto) 7.2 % (0.0-4.0) H 12/17/17 05:00 Baso % (Auto) 1.4 % (0.0-2.0) 12/17/17 05:00 Neut # 2.5 K/uL (1.8-7.0) 12/17/17 05:00 Lymph # 1.1 K/uL (1.0-4.3) 12/17/17 05:00 Major # 0.7 K/uL (0.0-0.8) 12/17/17 05:00 Eos # 0.3 K/uL (0.0-0.7) 12/17/17 05:00 Baso # 0.1 K/uL (0.0-0.2) 12/17/17 05:00 PT 11.1 Seconds (9.8-13.1) 12/16/17 17:50 INR 1.0 (0.9-1.2) 12/16/17 17:50 APTT 32.5 Seconds (25.6-37.1) 12/16/17 17:50 Sodium 143 mmol/l (132-148) 12/18/17 05:17 Potassium 3.9 MMOL/L (3.6-5.0) 12/18/17 05:17 Chloride 106 mmol/L (98-107) 12/18/17 05:17 Carbon Dioxide 27 mmol/L (22-30) 12/18/17 05:17 Anion Gap 14 (10-20) 12/18/17 05:17 BUN 19 mg/dl (7-17) H 12/18/17 05:17 Creatinine 1.4 mg/dl (0.7-1.2) H 12/18/17 05:17 Est GFR ( Amer) 44 12/18/17 05:17 Est GFR (Non-Af Amer) 36 12/18/17 05:17 Random Glucose 99 mg/dL (65-105) 12/18/17 05:17 Calcium 9.4 mg/dL (8.4-10.2) 12/18/17 05:17 Total Bilirubin 0.5 mg/dl (0.2-1.3) 12/17/17 05:00 AST 19 U/L (14-36) 12/17/17 05:00 ALT 24 U/L (9-52) 12/17/17 05:00 Alkaline Phosphatase 96 U/L (38-126) 12/17/17 05:00 Troponin I 0.0270 ng/mL (0.00-0.120) 12/17/17 16:02 NT-Pro-B Natriuret Pep 731 pg/ml (0-900) 12/17/17 05:00 Total Protein 6.7 G/DL (6.3-8.2) 12/17/17 05:00 Albumin 3.4 g/dL (3.5-5.0) L D 12/17/17 05:00 Globulin 3.3 gm/dL (2.2-3.9) 12/17/17 05:00 Albumin/Globulin Ratio 1.0 (1.0-2.1) 12/17/17 05:00 TSH 3rd Generation 1.09 mIU/ML (0.46-4.68) 12/17/17 09:56 - Hospital Course Hospital Course: 77 year old female, with a past medical history of HTN, was sent from the [facility] by PCP complaining of left leg swelling associated with mild pain and difficulty moving for x3 months. Patient reports she has been following up with her doctor often for the leg swelling. However, she noticed the swelling worsened today which prompted her visit to the doctor. Patient had a LE US that showed no DVT. While at ED patient suddenly developed CP and palpitations. EKG showed A.Fib with RPR and ST abnormality. Patient was treated in ED, HR improved and CP/Palpitations resolved. Patient admitted in telemetry for further eval and treatment.During hospitalization and on cardizen drip, patient went back to sinus rhythm, cardizem drip discontinued.Chest pain resolved. troponin #1 normal, 2 next troponin higher,a 4 troponin normal, pt asymptomatic, EKG next day after admission, no acute changes. Echo Normal LV systolic function, concentric LVH, mild aortic insufficiency. Left lower leg pain resolved, lower ext venous us neg for DVT. Pararescue Manager: Dr Kingsley consulted. Patient started in Eliquis 2.5 mg BID .(-CHADS -VASc = 4(Candidate for anticoag). . Patient has remained with asymptomatc bradycardic after cardizem drip discontinued. HR: average 50-56. Pt cleared by enrollment management coordinator to be discharged. PT evaluated patient. Recommended discharge patient to TCU. Evaluated by professor of social work. Patient lives with , who is hospitalized and can not be alone at home. Diagnosis 1) A.Fib with RVR -new onset, resolved 2) Chest pain -resolved 3) Left leg pain -resolved -Likely venous insufficiency vs CKD -Us lower ext: no DVT -ProBnp normal 731 4) CKD III G3 -GFR: 48 Bun/Cr nl 5) HTN Losartan 25 mg daily Discharge Exam - Head Exam Head Exam: ATRAUMATIC, NORMOCEPHALIC - Eye Exam Eye Exam: Normal appearance - ENT Exam ENT Exam: Mucous Membranes Moist - Neck Exam Neck exam: Normal Inspection - Respiratory Exam Respiratory Exam: NORMAL BREATHING PATTERN. absent: Rales, Rhonchi - Cardiovascular Exam Cardiovascular Exam: Bradycardia, REGULAR RHYTHM, +S1, +S2 - GI/Abdominal Exam GI & Abdominal Exam: Normal Bowel Sounds, Soft. absent: Tenderness - Extremities Exam Extremities exam: normal inspection - Neurological Exam Neurological exam: Alert, Oriented x3 - Psychiatric Exam Psychiatric exam: Normal Mood - Skin Skin Exam: Intact Discharge Plan - Discharge Medications Prescriptions: Apixaban [Eliquis] 2.5 mg PO BID 30 Days #60 tab Losartan [Cozaar] 25 mg PO DAILY 30 Days #30 tab - Follow Up Plan Condition: STABLE Disposition: REHAB FACILITY/REHAB UNIT Clinical Quality Measures - CQM - Stroke Anticoagulation Prescribed for Atrial Flutter, Atrial Fibrillation and History of:: Yes (Eliquis 2.5 mg BID)
--- NOTE | 2017-12-18 12:15 | CARD ---
APPROVED REPORT EXAM: Two-dimensional and M-mode echocardiogram with Doppler and color Doppler. Other Information Quality : GoodRhythm : NSR INDICATION Atrial Fibrillation 2D DIMENSIONS IVSd1.49 (0.7-1.1cm)LVDd3.53 (3.9-5.9cm) LVOT Diameter2.00 (1.8-2.4cm)PWd1.18 (0.7-1.1cm) IVSs1.35 (0.8-1.2cm)LVDs2.57 (2.5-4.0cm) FS (%) 27.2 %PWs1.12 (0.8-1.2cm) M-Mode DIMENSIONS Left Atrium (MM)3.97 (2.5-4.0cm)IVSd1.39 (0.7-1.1cm) Aortic Root2.91 (2.2-3.7cm)LVDd4.50 (4.0-5.6cm) Aortic Cusp Exc.2.12 (1.5-2.0cm)PWd0.93 (0.7-1.1cm) IVSs1.65 cmFS (%) 48 % LVDs2.35 (2.0-3.8cm)PWs1.49 cm Mitral Valve MV E Cvxjhrsi33.6cm/sMV DECEL [id number] A Qubcyloj01.8cm/s MV EVW02thB/A ratio1.6MVA (PHT)2.82cm2 TDI E/Lateral E'0.0E/Medial E'0.0 LEFT VENTRICLE The left ventricle is normal size. There is mild concentric left ventricular hypertrophy. The left ventricular function is normal. The left ventricular ejection fraction is 60% There is normal LV segmental wall motion. Transmitral Doppler flow pattern is Grade I-abnormal relaxation pattern. No left ventricle thrombus noted on this study. There is no ventricular septal defect visualized. There is no left ventricular aneurysm. There is no mass noted in the left ventricle. RIGHT VENTRICLE The right ventricle is normal size. There is normal right ventricular wall thickness. The right ventricular systolic function is normal. ATRIA The left atrium size is normal. The right atrium size is normal. The interatrial septum is intact with no evidence for an atrial septal defect. AORTIC VALVE The aortic valve is mildly to moderately sclerotic. There is mild aortic regurgitation. There is no aortic valvular stenosis. There is no aortic valvular vegetation. MITRAL VALVE The mitral valve is normal in structure. There is no evidence of mitral valve prolapse. There is no mitral valve stenosis. There is no mitral valve regurgitation noted. TRICUSPID VALVE The tricuspid valve is normal in structure. There is no tricuspid valve regurgitation noted. There is no tricuspid valve prolapse or vegetation. There is no tricuspid valve stenosis. PULMONIC VALVE The pulmonary valve is normal in structure. There is no pulmonic valvular regurgitation. There is no pulmonic valvular stenosis. GREAT VESSELS The aortic root is normal in size. The ascending aorta is normal in size. The IVC is normal in size and collapses >50% with inspiration. PERICARDIAL EFFUSION The pericardium appears normal. There is no pleural effusion. <Conclusion> Normal LV systollic function Concentric LVH Mild Aortic Insufficiency
--- NOTE | 2017-12-18 17:13 | CP.PCM.PCO ---
Addendum Addendum: 12/18/17 17:09 We are notified by social media designer that patient's insurance does not approve TCU. Patient will be discharged tomorrow. Family notified. Next of King Cornelius Vázquez notified and agree.
--- NOTE | 2017-12-18 18:31 | CARD ---
APPROVED REPORT EKG Measurement Heart [id number] <Conclusion> Sinus bradycardia with premature atrial complexes Nonspecific T wave abnormality Abnormal ECG
--- NOTE | 2017-12-18 18:32 | CARD ---
APPROVED REPORT EKG Measurement Heart [id number] <Conclusion> Atrial fibrillation with rapid ventricular response Marked ST abnormality, possible inferior subendocardial injury Abnormal ECG
--- NOTE | 2017-12-19 09:31 | CP.PCM.PN ---
Addendum entered and electronically signed by Breanna Stearns MD 12/19/17 12:37: Assessment: DVT Prophylaxis. Patient on Eliquis 2.5 mg BID Pt missed eliquis dose last night and today in the morning. Medication was not released from pharmacy Addendum entered and electronically signed by Breanna tSearns MD 12/19/17 12:26: Losartan 25 mg discontinued. Original Note: Subjective - Date & Time of Evaluation Date of Evaluation: 12/19/17 Time of Evaluation: 07:10 - Subjective Subjective: Patient seen and examined bedside sitting on chair. Patient reports feeling well. She denies palpitation, chest pain, SOB, leg pain. Patient able to ambulate and reports was able to go restroom in the morning to brush her teeth. Reports eating less yesterday after lunch and has not had a BM for the last 2 days. reports BM habit every 2 days. We were notified by manager social media yesterday that patient's insurance does not approve TCU. PT and transit survey worker will evaluate patient today again for dispo. PT evaluated patient and recommends to c/w PT. Pending final decision by SW. patient will be transferred to Med/surg. Objective - Vital Signs/Intake and Output Vital Signs (last 24 hours): Temp Pulse Resp BP Pulse Ox 98 F 45 L 20 115/64 95 12/19/17 08:00 12/19/17 09:04 12/19/17 08:00 12/19/17 09:04 12/19/17 08:00 - Medications Medications: Current Medications Acetaminophen (Tylenol 325mg Tab) 650 mg PO Q6 PRN PRN Reason: Pain, moderate (4-7) Last Admin: 12/17/17 09:33 Dose: 650 mg Apixaban (Eliquis) 2.5 mg PO BID [facility] PRN Reason: Protocol Losartan Potassium (Cozaar) 25 mg PO DAILY [facility] Last Admin: 12/19/17 09:04 Dose: Not Given Nitroglycerin (Nitrostat Sl Tab) 0.4 mg SL Q5M PRN PRN Reason: Chest pain - Labs Labs: 12/18/17 05:17 12/18/17 05:17 PT 11.1 Seconds (9.8-13.1) 12/16/17 17:50 INR 1.0 (0.9-1.2) 12/16/17 17:50 APTT 32.5 Seconds (25.6-37.1) 12/16/17 17:50 - Constitutional Appears: Well, Non-toxic, No Acute Distress - Head Exam Head Exam: ATRAUMATIC, NORMOCEPHALIC - Eye Exam Eye Exam: Normal appearance - ENT Exam ENT Exam: Mucous Membranes Moist - Neck Exam Neck Exam: Normal Inspection - Respiratory Exam Respiratory Exam: Clear to Ausculation Bilateral. absent: Rales, Rhonchi, Wheezes, Stridor - Cardiovascular Exam Cardiovascular Exam: Bradycardia, +S1, +S2 - GI/Abdominal Exam GI & Abdominal Exam: Soft, Normal Bowel Sounds. absent: Tenderness - Extremities Exam Extremities Exam: Normal Inspection. absent: Calf Tenderness, Pedal Edema - Neurological Exam Neurological Exam: Alert, Awake, Oriented x3 Neuro motor strength exam: Left Upper Extremity: 5, Right Upper Extremity: 5, Left Lower Extremity: 5, Right Lower Extremity: 5 - Psychiatric Exam Psychiatric exam: Normal Mood - Skin Skin Exam: Intact Assessment and Plan - Assessment and Plan (Free Text) Plan: 77 y/o, f, PMhx/o HTN, chronic LE edema admitted to hosp for sudden onset A.fib and Chest pain 1) A.Fib with RV -resolved -Acute new onset in ED -S/P Diltizem 15 mg IV bolus(total) -s/p diltiazem drip. stopped. Sinus rhytm isnce yesterday -Drum Puller consult appreciated Dr Kingsley: Started in Eliquis 5 mg but reduced to 2.5 mg BID(CKD). pt cleared to be discharged -CHADS-VASc = 4(Candidate for anticoag). -EKG sinus josh w/PAC -Echo:Nl LV systolic function, concentric LVH, mild Ao insufficiency -Transfer to Med/Surg 2) Chest pain -resolved -EKG shows nonspecific ST elevation: Pending report -Troponin 1 neg, next 2 trending up. 4th troponin normal -Cardio consulted appreciated:as per Dr Kingsley, ST changes could be due to tachycardia. trops normalized. Cleared to be discharge -S/P ASA 325 mg PO -NItroglycerin 0.4 SL pRN for CP -EKG AM no acute changes 3) Left leg pain -resolved -Likely venous insufficiency -Hx of varicous vein Sx -asymptomatic today. no pedal edema -Us lower ext: no DVT -ProBnp normal 731 4) CKD III G3 -GFR: 48 Bun/Cr nl 5) HTN Losartan 25 mg daily 6) DVT prophylaxis - SCD . on Eliquis 5 mg po daily Dispo: Med/Surg. Pt's insurance did not cover TCU. PT recommends c/w PT Pending SW evaluation
--- NOTE | 2017-12-20 11:37 | CP.PCM.PN ---
Subjective - Date & Time of Evaluation Date of Evaluation: 12/20/17 Time of Evaluation: 08:00 - Subjective Subjective: 77 y/o F evaluated and examined by bedside. Pt afebrile, tolerating PO with NO acute events overnight. Pt able to ambulate to bathroom. Last bowel movement last night. No chest pain or SOB present. Objective - Vital Signs/Intake and Output Vital Signs (last 24 hours): Temp Pulse Resp BP Pulse Ox 97.6 F 52 L 18 132/74 95 12/20/17 08:04 12/20/17 08:04 12/20/17 08:04 12/20/17 08:04 12/20/17 08:04 - Medications Medications: Current Medications Acetaminophen (Tylenol 325mg Tab) 650 mg PO Q6 PRN PRN Reason: Pain, moderate (4-7) Last Admin: 12/20/17 10:37 Dose: 650 mg Apixaban (Eliquis) 2.5 mg PO BID [facility] PRN Reason: Protocol Last Admin: 12/20/17 08:36 Dose: 2.5 mg Losartan Potassium (Cozaar) 25 mg PO DAILY [facility] Last Admin: 12/19/17 09:04 Dose: Not Given Nitroglycerin (Nitrostat Sl Tab) 0.4 mg SL Q5M PRN PRN Reason: Chest pain - Labs Labs: 12/18/17 05:17 12/18/17 05:17 PT 11.1 Seconds (9.8-13.1) 12/16/17 17:50 INR 1.0 (0.9-1.2) 12/16/17 17:50 APTT 32.5 Seconds (25.6-37.1) 12/16/17 17:50 - Constitutional Appears: Well, No Acute Distress - Head Exam Head Exam: ATRAUMATIC, NORMAL INSPECTION - Eye Exam Eye Exam: EOMI, Normal appearance - ENT Exam ENT Exam: Mucous Membranes Moist - Neck Exam Neck Exam: Full ROM - Respiratory Exam Respiratory Exam: Clear to Ausculation Bilateral, NORMAL BREATHING PATTERN - Cardiovascular Exam Cardiovascular Exam: REGULAR RHYTHM, +S1, +S2 - GI/Abdominal Exam GI & Abdominal Exam: Soft, Normal Bowel Sounds. absent: Tenderness - Extremities Exam Extremities Exam: Full ROM. absent: Normal Capillary Refill - Neurological Exam Neurological Exam: Alert, Awake Assessment and Plan - Assessment and Plan (Free Text) Assessment: 77 y/o, f, PMhx/o HTN, chronic LE edema admitted to hosp for sudden onset A.fib and Chest pain Plan: 1) A. Fib with RV -Resolved, with sinus josh w/PAC on EKG. -Acute, new onset in ED -S/P Diltizem 15 mg IV bolus(total), diltiazem drip. stopped. -Automotive Internet Sales Manager consult appreciated Dr Kingsley: Started in Eliquis 5 mg but reduced to 2.5 mg BID(CKD). pt cleared to be discharged -CHADS-VASc = 4(Candidate for anticoag). -Echo:Nl LV systolic function, concentric LVH, mild Aortic insufficiency 2) Chest pain -Resolved -EKG shows nonspecific ST elevation: Pending report -Troponin WNL x4. -Cardio consulted appreciated:as per Dr Kingsley, ST changes could be due to tachycardia. trops normalized. Cleared to be discharge -S/P ASA 325 mg PO -Nitroglycerin 0.4 SL pRN for CP 3) Left leg pain -Resolved. Currently asymptomatic -Likely venous insufficiency -Hx of varicous vein Sx -Us lower ext on 12/16/17: no DVT -ProBnp normal 731 4) CKD III G3 -Today 12/20/17: BUN/Creat 21/1.2. -GFR: 43 -Lab values seem to have decreased since Elliquis's dose was decreased to 2.5 mg PO daily. 5) HTN - Hold Losartan 25 mg since admission. - BP has remained WNL. 6) DVT prophylaxis - SCD . on Eliquis 2.5 mg po daily Dispo: Med/Surg. Pt's insurance did not cover TCU. Physical Therapy recommends c/w PT Pending SW evaluation
[2017-12-20 12:53] LABS: CALCIUM 9.2 mg/dL (8.4-10.2)
--- NOTE | 2017-12-21 11:55 | CP.PCM.PN ---
Subjective - Date & Time of Evaluation Date of Evaluation: 12/21/17 Time of Evaluation: 07:45 - Subjective Subjective: Patient seen and examined bedside, reports feeling better. Reports occs left ankle pain, intermittent. Denies pain now, no chest pain, palpitation, SOB. had 1 bm yesterday Potential discharged tomorrow. SW working in dispo.Possible to Objective - Vital Signs/Intake and Output Vital Signs (last 24 hours): Temp Pulse Resp BP Pulse Ox 98.1 F 61 20 118/69 98 12/21/17 08:35 12/21/17 10:22 12/21/17 08:35 12/21/17 08:35 12/21/17 10:22 - Medications Medications: Current Medications Acetaminophen (Tylenol 325mg Tab) 650 mg PO Q6 PRN PRN Reason: Pain, moderate (4-7) Last Admin: 12/20/17 10:37 Dose: 650 mg Apixaban (Eliquis) 2.5 mg PO BID [facility] PRN Reason: Protocol Last Admin: 12/21/17 09:11 Dose: 2.5 mg Losartan Potassium (Cozaar) 25 mg PO DAILY [facility] Last Admin: 12/19/17 09:04 Dose: Not Given Nitroglycerin (Nitrostat Sl Tab) 0.4 mg SL Q5M PRN PRN Reason: Chest pain - Labs Labs: 12/18/17 05:17 12/20/17 12:20 PT 11.1 Seconds (9.8-13.1) 12/16/17 17:50 INR 1.0 (0.9-1.2) 12/16/17 17:50 APTT 32.5 Seconds (25.6-37.1) 12/16/17 17:50 - Constitutional Appears: Non-toxic, No Acute Distress - Head Exam Head Exam: ATRAUMATIC, NORMOCEPHALIC - Eye Exam Eye Exam: Normal appearance - ENT Exam ENT Exam: Mucous Membranes Moist - Neck Exam Neck Exam: Normal Inspection - Respiratory Exam Respiratory Exam: Clear to Ausculation Bilateral. absent: Rales, Wheezes - Cardiovascular Exam Cardiovascular Exam: REGULAR RHYTHM, +S1, +S2 - GI/Abdominal Exam GI & Abdominal Exam: Soft, Normal Bowel Sounds. absent: Tenderness - Neurological Exam Neurological Exam: Alert, Awake, Oriented x3 - Psychiatric Exam Psychiatric exam: Normal Affect - Skin Skin Exam: Intact Assessment and Plan - Assessment and Plan (Free Text) Plan: 77 y/o, f, PMhx/o HTN, chronic LE edema admitted to hosp for sudden onset A.fib and Chest pain 1) A. Fib with RV -Resolved, with sinus josh w/PAC on EKG. -Acute, new onset in ED -S/P Diltizem 15 mg IV bolus(total), diltiazem drip. stopped. -Self Pay Representative consult appreciated Dr Kingsley: Started in Eliquis 5 mg but reduced to 2.5 mg BID(CKD). pt cleared to be discharged -CHADS-VASc = 4(Candidate for anticoag). -Echo:Nl LV systolic function, concentric LVH, mild Aortic insufficiency 2) Chest pain -Resolved -EKG shows nonspecific ST elevation: Pending report -Troponin WNL x4. -Cardio consulted appreciated:as per Dr Kingsley, ST changes could be due to tachycardia. trops normalized. Cleared to be discharge -S/P ASA 325 mg PO -Nitroglycerin 0.4 SL pRN for CP 3) Left leg pain -Resolved. Currently asymptomatic and not pedal edema -Likely venous insufficiency -Hx of varicous vein Sx -Us lower ext on 12/16/17: no DVT -ProBnp normal 731 4) CKD III G3 -Today 12/20/17: BUN/Creat 21/1.2. -GFR: 43 -Lab values seem to have decreased since Elliquis's dose was decreased to 2.5 mg PO daily. 5) HTN - Hold Losartan 25 mg since admission. - BP has remained WNL. 6) DVT prophylaxis - SCD . on Eliquis 2.5 mg po daily Dispo: Med/Surg. Pt's insurance did not cover TCU. Physical Therapy recommends c/w PT SW discussing dispo to [facility] nursing facility. possible discharge tomorrow
[2017-12-22 07:03] LABS: CALCIUM 9.5 mg/dL (8.4-10.2)
--- NOTE | 2017-12-22 08:21 | CP.PCM.DIS ---
Provider - Provider Date of Admission: 12/16/17 18:29 Attending physician: Shraddha Lan MD Hospital Course - Lab Results Lab Results: Most Recent Lab Values WBC 4.9 K/uL (4.8-10.8) 12/18/17 05:17 RBC 3.88 Mil/uL (3.80-5.20) 12/18/17 05:17 Hgb 12.0 g/dL (12.0-16.0) 12/18/17 05:17 Hct 36.1 % (34.0-47.0) 12/18/17 05:17 MCV 93.1 fl (81.0-99.0) 12/18/17 05:17 MCH 31.1 pg (27.0-31.0) H 12/18/17 05:17 MCHC 33.4 g/dL (33.0-37.0) 12/18/17 05:17 RDW 13.7 % (11.5-14.5) 12/18/17 05:17 Plt Count 184 K/uL (130-400) 12/18/17 05:17 MPV 10.4 fl (7.2-11.7) 12/17/17 05:00 Neut % (Auto) 53.1 % (50.0-75.0) 12/17/17 05:00 Lymph % (Auto) 24.2 % (20.0-40.0) 12/17/17 05:00 [place] % (Auto) 14.1 % (0.0-10.0) H 12/17/17 05:00 Eos % (Auto) 7.2 % (0.0-4.0) H 12/17/17 05:00 Baso % (Auto) 1.4 % (0.0-2.0) 12/17/17 05:00 Neut # 2.5 K/uL (1.8-7.0) 12/17/17 05:00 Lymph # 1.1 K/uL (1.0-4.3) 12/17/17 05:00 [place] # 0.7 K/uL (0.0-0.8) 12/17/17 05:00 Eos # 0.3 K/uL (0.0-0.7) 12/17/17 05:00 Baso # 0.1 K/uL (0.0-0.2) 12/17/17 05:00 PT 11.1 Seconds (9.8-13.1) 12/16/17 17:50 INR 1.0 (0.9-1.2) 12/16/17 17:50 APTT 32.5 Seconds (25.6-37.1) 12/16/17 17:50 Sodium 144 mmol/l (132-148) 12/22/17 06:10 Potassium 4.5 MMOL/L (3.6-5.0) 12/22/17 06:10 Chloride 105 mmol/L (98-107) 12/22/17 06:10 Carbon Dioxide 29 mmol/L (22-30) 12/22/17 06:10 Anion Gap 15 (10-20) 12/22/17 06:10 BUN 22 mg/dl (7-17) H 12/22/17 06:10 Creatinine 1.2 mg/dl (0.7-1.2) 12/22/17 06:10 Est GFR ( Amer) 53 12/22/17 06:10 Est GFR (Non-Af Amer) 43 12/22/17 06:10 Random Glucose 98 mg/dL (65-105) 12/22/17 06:10 Calcium 9.5 mg/dL (8.4-10.2) 12/22/17 06:10 Total Bilirubin 0.5 mg/dl (0.2-1.3) 12/17/17 05:00 AST 19 U/L (14-36) 12/17/17 05:00 ALT 24 U/L (9-52) 12/17/17 05:00 Alkaline Phosphatase 96 U/L (38-126) 12/17/17 05:00 Troponin I 0.0270 ng/mL (0.00-0.120) 12/17/17 16:02 NT-Pro-B Natriuret Pep 731 pg/ml (0-900) 12/17/17 05:00 Total Protein 6.7 G/DL (6.3-8.2) 12/17/17 05:00 Albumin 3.4 g/dL (3.5-5.0) L D 12/17/17 05:00 Globulin 3.3 gm/dL (2.2-3.9) 12/17/17 05:00 Albumin/Globulin Ratio 1.0 (1.0-2.1) 12/17/17 05:00 Vitamin B12 621 pg/mL (239-931) 12/22/17 06:10 TSH 3rd Generation 1.09 mIU/ML (0.46-4.68) 12/17/17 09:56 Discharge Exam - Head Exam Head Exam: ATRAUMATIC, NORMOCEPHALIC Discharge Plan - Discharge Medications Prescriptions: Apixaban [Eliquis] 2.5 mg PO BID 30 Days #60 tab Losartan [Cozaar] 25 mg PO DAILY 30 Days #30 tab - Follow Up Plan Condition: STABLE Disposition: HOME/ ROUTINE Additional Instructions: -Follow up [facility] with Dr Chago Ridley 12/22/17 at 9: 40 Am -Follow up with Light Technician Dr Kingsley in 2 weeks. -If palpitation with chest pain, SOB or pass out go to ED. Referrals: Saleem Kingsley MD [Staff Provider] -
--- NOTE | 2017-12-22 10:12 | CP.PCM.PN ---
Subjective - Date & Time of Evaluation Date of Evaluation: 12/22/17 Time of Evaluation: 07:20 - Subjective Subjective: Patient seen and examined bedside. Patient reports feeling better. Denies chest pain, palpitation, SOB, leg pain. No overnight events. Pending approval by insurance for [facility] rehab. Objective - Vital Signs/Intake and Output Vital Signs (last 24 hours): Temp Pulse Resp BP Pulse Ox 98.2 F 73 20 132/70 98 12/22/17 08:01 12/22/17 08:01 12/22/17 08:01 12/22/17 08:01 12/22/17 08:01 - Medications Medications: Current Medications Acetaminophen (Tylenol 325mg Tab) 650 mg PO Q6 PRN PRN Reason: Pain, moderate (4-7) Last Admin: 12/22/17 09:50 Dose: 650 mg Apixaban (Eliquis) 2.5 mg PO BID [facility] PRN Reason: Protocol Last Admin: 12/22/17 08:56 Dose: 2.5 mg Losartan Potassium (Cozaar) 25 mg PO DAILY [facility] Last Admin: 12/19/17 09:04 Dose: Not Given Nitroglycerin (Nitrostat Sl Tab) 0.4 mg SL Q5M PRN PRN Reason: Chest pain - Labs Labs: 12/18/17 05:17 12/22/17 06:10 PT 11.1 Seconds (9.8-13.1) 12/16/17 17:50 INR 1.0 (0.9-1.2) 12/16/17 17:50 APTT 32.5 Seconds (25.6-37.1) 12/16/17 17:50 - Constitutional Appears: Non-toxic, No Acute Distress - Head Exam Head Exam: ATRAUMATIC, NORMOCEPHALIC - Eye Exam Eye Exam: Normal appearance - ENT Exam ENT Exam: Mucous Membranes Moist - Neck Exam Neck Exam: Normal Inspection - Respiratory Exam Respiratory Exam: Clear to Ausculation Bilateral. absent: Rales, Rhonchi, Wheezes - Cardiovascular Exam Cardiovascular Exam: Bradycardia, +S1, +S2 - GI/Abdominal Exam GI & Abdominal Exam: Soft, Normal Bowel Sounds. absent: Tenderness - Extremities Exam Extremities Exam: Normal Inspection. absent: Pedal Edema - Neurological Exam Neurological Exam: Alert, Awake, Oriented x3 - Psychiatric Exam Psychiatric exam: Normal Affect, Normal Mood - Skin Skin Exam: Intact. absent: Petechiae, Rash Assessment and Plan - Assessment and Plan (Free Text) Plan: 77 y/o, f, PMhx/o HTN, chronic LE edema admitted to hosp for sudden onset A.fib and Chest pain 1) A. Fib with RV -Resolved -Asymptomatic -EKG: sinus josh w/PAC -Aerial Gunner Superintendent consult appreciated -On Eliquis 2.5 mg BID -Echo:Nl LV systolic function, concentric LVH, mild Aortic insufficiency 2) CKD III G3 -Today 12/20/17: BUN/Creat 21/.2. -GFR: 43 3) Hx/o HTN - Losartan 25 mg Discontinued. - BP has remained WNL. 4) DVT prophylaxis - SCD . on Eliquis 2.5 mg po BID 5) Dispo: Med/Surg. Pt's insurance did not cover TCU. -Pending approval by medical insurance to transfer to [facility] subacute rehab.
[2017-12-22 13:35] LABS: FOLATE 18.2 ng/mL
[2017-12-23 07:53] VITALS: BP 132/72; PULSE 65; RESP 20; TEMP 98.2; O2SAT 98
--- NOTE | 2017-12-23 10:17 | CP.PCM.DIS ---
Provider - Provider Date of Admission: 12/16/17 18:29 Attending physician: Shraddha Lan MD Consults: Racker Octave Board Dr Kingsley Time Spent in preparation of Discharge (in minutes): 30 Hospital Course - Lab Results Lab Results: Most Recent Lab Values WBC 4.9 K/uL (4.8-10.8) 12/18/17 05:17 RBC 3.88 Mil/uL (3.80-5.20) 12/18/17 05:17 Hgb 12.0 g/dL (12.0-16.0) 12/18/17 05:17 Hct 36.1 % (34.0-47.0) 12/18/17 05:17 MCV 93.1 fl (81.0-99.0) 12/18/17 05:17 MCH 31.1 pg (27.0-31.0) H 12/18/17 05:17 MCHC 33.4 g/dL (33.0-37.0) 12/18/17 05:17 RDW 13.7 % (11.5-14.5) 12/18/17 05:17 Plt Count 184 K/uL (130-400) 12/18/17 05:17 MPV 10.4 fl (7.2-11.7) 12/17/17 05:00 Neut % (Auto) 53.1 % (50.0-75.0) 12/17/17 05:00 Lymph % (Auto) 24.2 % (20.0-40.0) 12/17/17 05:00 [place] % (Auto) 14.1 % (0.0-10.0) H 12/17/17 05:00 Eos % (Auto) 7.2 % (0.0-4.0) H 12/17/17 05:00 Baso % (Auto) 1.4 % (0.0-2.0) 12/17/17 05:00 Neut # 2.5 K/uL (1.8-7.0) 12/17/17 05:00 Lymph # 1.1 K/uL (1.0-4.3) 12/17/17 05:00 [place] # 0.7 K/uL (0.0-0.8) 12/17/17 05:00 Eos # 0.3 K/uL (0.0-0.7) 12/17/17 05:00 Baso # 0.1 K/uL (0.0-0.2) 12/17/17 05:00 PT 11.1 Seconds (9.8-13.1) 12/16/17 17:50 INR 1.0 (0.9-1.2) 12/16/17 17:50 APTT 32.5 Seconds (25.6-37.1) 12/16/17 17:50 Sodium 144 mmol/l (132-148) 12/22/17 06:10 Potassium 4.5 MMOL/L (3.6-5.0) 12/22/17 06:10 Chloride 105 mmol/L (98-107) 12/22/17 06:10 Carbon Dioxide 29 mmol/L (22-30) 12/22/17 06:10 Anion Gap 15 (10-20) 12/22/17 06:10 BUN 22 mg/dl (7-17) H 12/22/17 06:10 Creatinine 1.2 mg/dl (0.7-1.2) 12/22/17 06:10 Est GFR ( Amer) 53 12/22/17 06:10 Est GFR (Non-Af Amer) 43 12/22/17 06:10 Random Glucose 98 mg/dL (65-105) 12/22/17 06:10 Calcium 9.5 mg/dL (8.4-10.2) 12/22/17 06:10 Total Bilirubin 0.5 mg/dl (0.2-1.3) 12/17/17 05:00 AST 19 U/L (14-36) 12/17/17 05:00 ALT 24 U/L (9-52) 12/17/17 05:00 Alkaline Phosphatase 96 U/L (38-126) 12/17/17 05:00 Troponin I 0.0270 ng/mL (0.00-0.120) 12/17/17 16:02 NT-Pro-B Natriuret Pep 731 pg/ml (0-900) 12/17/17 05:00 Total Protein 6.7 G/DL (6.3-8.2) 12/17/17 05:00 Albumin 3.4 g/dL (3.5-5.0) L D 12/17/17 05:00 Globulin 3.3 gm/dL (2.2-3.9) 12/17/17 05:00 Albumin/Globulin Ratio 1.0 (1.0-2.1) 12/17/17 05:00 Vitamin B12 621 pg/mL (239-931) 12/22/17 06:10 25-OH Vitamin D Total 16.1 NG/ML (30.0-100.0) L 12/22/17 06:10 Folate 18.2 ng/mL 12/22/17 06:10 TSH 3rd Generation 1.09 mIU/ML (0.46-4.68) 12/17/17 09:56 - Hospital Course Hospital Course: 77 year old female, with a past medical history of HTN, was sent from the [facility] by PCP complaining of left leg swelling associated with mild pain and difficulty moving for x3 months. Patient was sent to ED for evaluation of left leg swollen and on ED had paroxismal Afib first event. . LE US showed no DVT. EKG showed A.Fib with RPR and ST abnormality. Patient was treated in ED, HR improved and CP/Palpitations resolved. Patient admitted in telemetry for further eval and treatment.During hospitalization and on cardizen drip, patient went back to sinus rhythm, cardizem drip discontinued.Chest pain resolved. troponin #1 normal, 2 next troponin higher,a 4 troponin normal, pt asymptomatic, EKG next day after admission, no acute changes. Echo Normal LV systolic function, concentric LVH, mild aortic insufficiency. Left lower leg pain resolved, lower ext venous us neg for DVT. Racker Octave Board: Dr Kingsley consulted. Patient started in Eliquis 2.5 mg BID .(-CHADS -VASc = 4(Candidate for anticoag). . Patient has remained with asymptomatic bradycardia . Pt cleared by construction and maintenance inspector to be discharged. PT evaluated patient and recommended discharge patient to TCU but medical insurance did not approve TCU or subacute rehab as per . Patient will be discharge with Eliquis 2.5 mg BID. Medication eprescribed. Losartan was discontinued. BP controlled. Diagnosis 1) A.Fib with RVR -new onset, resolved 2) Chest pain -resolved 3) CKD III G3 -GFR: 48 Bun/Cr nl 4) HTN -controlled -discontinued Losartan Discharge Exam - Head Exam Head Exam: ATRAUMATIC, NORMOCEPHALIC - Eye Exam Eye Exam: Normal appearance - ENT Exam ENT Exam: Mucous Membranes Moist - Respiratory Exam Respiratory Exam: Clear to PA & Lateral. absent: Rales, Rhonchi - Cardiovascular Exam Cardiovascular Exam: REGULAR RHYTHM, +S1, +S2 - GI/Abdominal Exam GI & Abdominal Exam: Normal Bowel Sounds, Soft. absent: Guarding, Rebound - Extremities Exam Extremities exam: normal inspection - Neurological Exam Neurological exam: Alert, Oriented x3 - Psychiatric Exam Psychiatric exam: Normal Affect, Normal Mood - Skin Skin Exam: Intact Discharge Plan - Discharge Medications Prescriptions: Apixaban [Eliquis] 2.5 mg PO BID 30 Days #60 tab - Follow Up Plan Condition: STABLE Disposition: HOME/ ROUTINE Instructions: Atrial Fibrillation (DC), Edema (DC) Additional Instructions: -Follow up [facility] with Dr Chago Ridley Thursday12/28/17 1:20 pm -Follow up with Racker Octave Board Dr Kingsley in 2 weeks. -If palpitation with chest pain, SOB or pass out go to ED. Referrals: Saleem Kingsley MD [Staff Provider] -
== END 2017-12-23 12:30 | disposition home or self-care (01) | DRG 310 ==
LOC: H.ER 14:33 → H.ERHOLD 18:29 → H.TEL 21:05 → H.MEDSURG1 12-19 15:55
PROVIDERS: ADMIT Family Medicine Geriatric Medicine; ATTEND Family Medicine Geriatric Medicine
DX: I48.0 Paroxysmal atrial fibrillation (principal); R07.89 Other chest pain; I87.2 Venous insufficiency (chronic) (peripheral); N18.3 Chronic kidney disease, stage 3 (moderate); I35.1 Nonrheumatic aortic (valve) insufficiency; I12.9 Hypertensive chronic kidney disease with stage 1 through stage 4 chronic kidney disease, or unspecified chronic kidney disease